=== PATIENT | female | born 1970 | race Caucasian/White ===

== ENCOUNTER 2024-01-19 08:45 | Outpatient (CLI) | payer BC | END 2024-01-19 08:46 | disposition home or self-care (01) | LOC: PET 08:45 | PROVIDERS: ATTEND Internal Medicine | DX: R91.8 Other nonspecific abnormal finding of lung field (principal); C34.31 Malignant neoplasm of lower lobe, right bronchus or lung; R59.0 Localized enlarged lymph nodes | CPT/HCPCS: 78815; A9552 ==